=== PATIENT | male | born 1955 | race African-American/Black ===

== ENCOUNTER 2022-09-03 20:31 | Emergency (ER) | payer MEDICARE, OTHER ==
[~2022-09-03] VITALS: Ht 182.9 cm; Wt 158.8 kg
[~2022-09-03 20:31] MED LIST: AMLO5TAB4 PO; HYDR-3974 PO
[2022-09-03 22:09] VITALS: BP 123/78; TEMP 98.3; O2SAT 96
== END 2022-09-03 22:10 | disposition left against medical advice (07) ==
LOC: ER 20:34
DX: R53.1 Weakness (principal); Z53.21 Procedure and treatment not carried out due to patient leaving prior to being seen by health care provider